=== PATIENT | female | born 1990 | race Caucasian/White ===

== ENCOUNTER → 2016-05-02 | Outpatient (CLI) | payer BC ==
[~2016-05-02] MED LIST: COLACE100 MG PO; IBUPROFEN600 MG PO; NORCO 5-325 TA1 EACH PO
== END ==
LOC: LAB 06:44
DX: N92.6 Irregular menstruation, unspecified (principal)
CPT/HCPCS: 36415; 84436; 84439; 84443; 84479

== ENCOUNTER 2016-06-19 19:33 | Emergency (ER) | payer BC, OTHER | END 2016-06-19 21:22 | disposition home or self-care (01) | LOC: ER1 19:33 | DX: O9A.212 Injury, poisoning and certain other consequences of external causes complicating pregnancy, second trimester (principal); S93.402A Sprain of unspecified ligament of left ankle, initial encounter; Z3A.18 18 weeks gestation of pregnancy; X50.1XXA Overexertion from prolonged static or awkward postures, initial encounter; Y93.89 Activity, other specified; Y92.009 Unspecified place in unspecified non-institutional (private) residence as the place of occurrence of the external cause; Z88.1 Allergy status to other antibiotic agents | CPT/HCPCS: 29515; 73610; 99283 ==

== ENCOUNTER 2016-07-30 09:31 | Outpatient (CLI) | payer BC, OTHER | END 2016-07-30 12:12 | disposition home or self-care (01) | LOC: GENOP 09:31 | DX: O99.89 Other specified diseases and conditions complicating pregnancy, childbirth and the puerperium (principal); R30.0 Dysuria; Z3A.14 14 weeks gestation of pregnancy | CPT/HCPCS: 51702; 81001 ==

== ENCOUNTER → 2016-10-05 | Outpatient (CLI) | payer BC, OTHER ==
[2016-10-05 08:26] LABS: HEMOGLOBIN 11.2 gm/dl (12.3-15.3); RED BLOOD COUNT 3.75 M/UL (4.00-5.10); WHITE BLOOD COUNT 12.3 K/UL (4.5-11.0)
== END ==
LOC: LAB 06:53 → EDSTATUS 12:36
PROVIDERS: Physician Assistant
DX: Z01.812 Encounter for preprocedural laboratory examination (principal)
CPT/HCPCS: 36415; 82950; 85025

== ENCOUNTER → 2020-09-24 | Outpatient (CLI) | payer BC, OTHER ==
[~2020-09-24] MED LIST changes: +ZOLOFT50 MG PO
[2020-09-24 07:04] LABS: HEMOGLOBIN 13.5 gm/dl (12.3-15.3); RED BLOOD COUNT 4.69 M/UL (4.00-5.10); WHITE BLOOD COUNT 5.8 K/UL (4.5-11.0)
[2020-09-24 07:30] LABS: BUN/CREATININE RATIO 11 (0-10)
== END ==
LOC: LAB 06:30
PROVIDERS: Internal Medicine
DX: Z00.00 Encounter for general adult medical examination without abnormal findings (principal); Z13.1 Encounter for screening for diabetes mellitus; Z13.220 Encounter for screening for lipoid disorders; E55.9 Vitamin D deficiency, unspecified
CPT/HCPCS: 36415; 80053; 80061; 84439; 84443; 85025

== ENCOUNTER → 2021-06-22 | Outpatient (CLI) | payer OTHER ==
[2021-06-22 06:36] LABS: HEMOGLOBIN 13.4 gm/dl (12.3-15.3); RED BLOOD COUNT 4.45 M/UL (4.00-5.10); WHITE BLOOD COUNT 7.6 K/UL (4.5-11.0)
[2021-06-22 07:05] LABS: BUN/CREATININE RATIO 19 (0-10)
[2021-06-23 08:17] LABS: VITAMIN D, 25-HYDROXY 27.4 ng/mL (30.0-100.0)
[2021-06-23 09:17] LABS: SARS COV-2 SEMI-QUANT IGG <13.0 AU/mL (Neg <13.0); SARS COV-2 SPIKE AB INTERP Negative (.)
[2021-06-23 10:17] LABS: CREATININE, URINE 41.1 mg/dL (Not Estab.); MICROALB/CREAT RATIO <7 (0-29)
[2021-06-23 23:09] LABS: SARS-COV-2 SEMI-QUANT TOTAL AB 15.6 U/mL (Negative<0.8); SARS-COV-2 SPIKE AB INTERP Positive (.)
== END ==
LOC: LAB 05:51
PROVIDERS: Nurse Practitioner Family
DX: Z13.1 Encounter for screening for diabetes mellitus (principal); R82.998 Other abnormal findings in urine; Z01.84 Encounter for antibody response examination; Z20.822 Contact with and (suspected) exposure to COVID-19; R53.83 Other fatigue; Z13.220 Encounter for screening for lipoid disorders; E55.9 Vitamin D deficiency, unspecified
CPT/HCPCS: 36415; 80053; 80061; 81001; 82043; 82570; 82607; 83036; 84439; 84443; 85025; 86769; 87086

== ENCOUNTER 2021-07-10 13:57 | Emergency (ER) | payer OTHER | END 2021-07-10 15:46 | disposition home or self-care (01) | LOC: ER1 13:57 | DX: S63.282A Dislocation of proximal interphalangeal joint of right middle finger, initial encounter (principal); Z88.1 Allergy status to other antibiotic agents; W10.9XXA Fall (on) (from) unspecified stairs and steps, initial encounter | CPT/HCPCS: 26770; 73130; 73140; 99283 ==

== ENCOUNTER → 2021-07-21 | Outpatient (CLI) | payer OTHER | LOC: RAD 09:47 | DX: M79.641 Pain in right hand (principal); R22.31 Localized swelling, mass and lump, right upper limb | CPT/HCPCS: 73130 ==